=== PATIENT | female | born 2000 | race Caucasian/White ===

== ENCOUNTER 2022-12-15 07:51 | Inpatient (IN) ==
[2022-12-15] MEDS ORDERED: OXYTOCIN 30 UNITS/500 ML BAG IV PRN ×2 (09:03)
[2022-12-15] MEDS ORDERED: LIDOCAINE 1% LOCAL 20 ML VIAL INFIL PRN (09:03)
[2022-12-15] MEDS: LACTATED RINGER'S 1,000 ML IV PRN ×4 (09:45→22:16)
--- NOTE | 2022-12-15 10:04 | History & Physical Report ---
Date of Service December 15, 2022 Assessment & Plan (1) SROM (spontaneous rupture of membranes): Plan: Likely early labor given change from prior office exam and ctx on toco. Augmentation with pitocin discussed, accepted by patient. Epidural on request. Admission and Anticipated Discharge Date Admission Date: December 15, 2022 History of Present Illness Primary Care Provider: Jenn Castellanos, DO 22yo at 39w6d with ROM this morning f/b onset of mild ctx. Good FM, no VB, fluid clear. Allergies Allergy/AdvReac Type Severity Reaction Status Date / Time Penicillins Allergy Intermediate Rash Verified 12/15/22 08:13 latex Allergy Rash Verified 12/15/22 08:35 Home Medications Medication Instructions Recorded Confirmed Type prenat.vits,karla,[id number] 1 tab PO DAILY 05/04/22 12/15/22 History Patient History Medical History Anxiety and depression Palpitations holter monitored showed WNL Varicella vaccination Surgical History Hx of tonsillectomy Family History Mother Cervical cancer Other Dyslipidemia Hypertension Denies family history of Ovarian cancer Breast cancer Colorectal cancer Uterine cancer Social History Smoking Status: Never smoker Hx Alcohol Use: No Hx Substance Use: No Preferred Language: Irish Clinical Pharmacy Coordinator Required: No Beliefs That Will Affect Care: None marital status: Single marital status details: victoria Quintero III (20) [phone] Current Living Situation: Family Current Living Situation Comment: lives with mom, stepfather, grandmother and sibling, dogs current occupational status: student current occupation: [employer] student Other Information That Helps Us Care for You: No Feels Safe at Home: Yes Safety Concerns: Feels Safe At This Time Assistive Devices: None Physical Exam Constitutional: WD/WN, vitals as above Eyes: PERRL, conjunctivae normal, anicteric sclerae ENMT: external ear and nose normal, oropharynx normal Neck: supple Respiratory: normal respiratory effort and able to speak in complete sentences; no respiratory distress Cardiovascular: Rate/Rhythm: regular rate and regular rhythm Extremities: + pedal edema Gastrointestinal (Abdomen): Gravid / AGA, nontender Musculoskeletal: no cyanosis or clubbing, extremities motor strength 5/5 Skin: no rashes, warm and dry Psychiatric: A+Ox3, euthymic affect Genitourinary: Speculum/Bimanual Exam: no vaginal lesions, no vaginal bleeding and uterus nontender OB Exam Abdomen: + vertex, + estimated weight (7) and + regular contractions (Q3-5 mild) Manual OB Exam: + cervical dilation 2 cm, + cervical effacement 80%, + station -2 and + amniotic fluid clear OB Exam Monitor Tracing: + external FHT monitor used, + external uterine monitor used and + category I Lymphatic: no cervical or axillary lymphadenopathy Results & Data ([facility]) Vital Signs (Past 12 Hours) Vital Signs Temp Pulse Resp BP 12/15/22 09:00 98.4 F 18 12/15/22 08:10 98.4 F 18 12/15/22 09:44 57 L 122/84 12/15/22 08:04 71 115/78 Coding Level of Care Code None Diagnoses SROM (spontaneous rupture of membranes)
[2022-12-15] MEDS ORDERED: ePHEDrine sulfate 50 MG/ML AMP ONE (11:23)
[2022-12-15] MEDS ORDERED: BUPIVACAINE 0.25% 30 ML VIAL ONE (11:23)
[2022-12-15] MEDS ORDERED: fentaNYL citrate 100 MCG/2 ML VIAL ONE (11:23)
[2022-12-15] MEDS ORDERED: LIDOCAINE 2%/EPINEPHRINE 1:200,000 20 ML SDV ONE (11:23)
[2022-12-15] MEDS ORDERED: fentaNYL 2MCG/ML ROPIVACAINE 1.25MG/ML 100 ML BAG EPI ONE (11:23)
[2022-12-15] MEDS ORDERED: SODIUM CHLORIDE 0.9% INJ 10 ML VIAL ONE (11:23)
[2022-12-15 13:59] LABS: Hematocrit (blood only) 34.2 % (37.0-47.0); Mean Corpuscular Hemoglobin 26.1 pg (25.0-34.0); Mean Corpuscular Hgb Conc 32.2 g/dL (32.0-36.0); Mean Platelet Volume 11.4 fL (9.4-12.4); Platelet Count 287 K/uL (130-400); RDW Coefficient of Variation 13.9 % (11.5-14.5); RDW Standard Deviation 39.8 fL (36.4-46.3); Red Blood Count 4.22 M/uL (4.20-5.40); White Blood Count 10.28 K/ul (4.8-10.8)
[2022-12-15] MEDS ORDERED: ePHEDrine sulfate 50 MG/ML AMP IV PRN (15:22)
[2022-12-15] MEDS ORDERED: NALOXONE HCL 0.4 MG/1 ML VIAL/CARP IV PRN (15:22)
[2022-12-15] MEDS ORDERED: diphenhydrAMINE 50 MG/ML VIAL IV PRN (15:22)
[2022-12-15] MEDS ORDERED: ONDANSETRON INJ 2 MG/ML 2 ML VIAL IV PRN (15:22)
[2022-12-15] MEDS ORDERED: NALOXONE HCL 1 MG in SODIUM CHLORIDE 0.9% 1000ML 1,000 ML IV PRN (15:22)
[2022-12-15] MEDS ORDERED: NALBUPHINE HCL INJ 10 MG/ML AMP IV PRN (15:22)
--- NOTE | 2022-12-15 15:22 | Anesthesiology Consultation ---
Date of Service December 15, 2022 Assessment & Plan Chart Review Chart Review: Patient NOT seen in Pre Admission Testing and Acceptable Risk for Labor Epidural Consults Requested none ASA ASA2 Proposed Anesthesia Anesthesia Type: Labor Epidural Risk / Benefits Reviewed With: PT / POA / Parent / Guardian, Accepts Plan and Informed Consent Obtained History Height/Weight Height: 5 ft 4 in Weight: 73.028 kg Allergies Allergy/AdvReac Type Severity Reaction Status Date / Time Penicillins Allergy Intermediate Rash Verified 12/15/22 08:13 latex Allergy Rash Verified 12/15/22 08:35 Medications Home Medications Medication Instructions Recorded Confirmed Last Taken prenat.vits,karla,fjg-krud-inplo 1 tab PO DAILY 05/04/22 12/15/22 12/14/22 Active Medications Generic Name Dose Route Start Last Admin Trade Name Freq PRN Reason Stop Dose Admin Oxytocin 30 units in 500 mls @ 9 mls/hr 12/15/22 09:03 12/15/22 13:40 Pitocin IV 12/17/22 09:02 0.54 units/hr .Q24H PRN 9 mls/hr Labor Induction/Augmentation Titration Protocol 0.54 UNITS/HR Lactated Ringer's 1,000 mls @ 125 mls/hr 12/15/22 09:03 12/15/22 15:12 Lr IV 12/17/22 09:02 125 mls/hr .Q8H PRN Administration L&D Protocol Protocol Past Medical History Medical History Anxiety and depression Palpitations holter monitored showed WNL Varicella vaccination Exercise / Class Metabolic Activity II 4-5 Yardwork/Stairs/Walk up hill Past Family History Family History Mother Cervical cancer Other Dyslipidemia Hypertension Denies family history of Ovarian cancer Breast cancer Colorectal cancer Uterine cancer Past Surgical History Surgical History Hx of tonsillectomy Past Anesthesia History No Hx of Anesthesia Complications and No Family Hx of Anesthesia Complications History of PONV No Hx of PONV and No Hx of Motion Sickness Social History Smoking Status: Never smoker Hx Alcohol Use: No Hx Substance Use: No substance use type: does not use Physical Exam Vital Signs Last Vital Signs Temp 36.3 C L 12/15/22 15:00 Pulse 59 L 12/15/22 15:20 Resp 18 12/15/22 15:00 BP 120/68 12/15/22 15:07 Pulse Ox 100 12/15/22 15:20 ENMT Mouth: no dentition abnormality Thyromental Distance: > or= 3.5 Finger Breadths Mallampati Class: II Neck normal visual inspection Respiratory normal respiratory effort Auscultation: lungs clear to auscultation bilaterally Cardiovascular Rate/Rhythm: regular rate and regular rhythm Psychiatric Orientation: alert Testing Laboratory Results 12/15/22 09:15
--- NOTE | 2022-12-15 16:06 | Labor Progress Brief Note ---
Date of Service December 15, 2022 Subjective Comfortable with epidural. Has no concerns / complaints / questions at this time. Resting on her side facing the window, FOB in room supportive. Assessment & Plan Admission and Anticipated Discharge Date Admission Date: December 15, 2022 Physical Exam Genitourinary: Per RN recent exam, 4cm; not rechecked at this time Pitocin @ 11 FHT Cat 1 [place] Q2 Results & Data ([facility]) Vital Signs (Past 12 Hours) Vital Signs Temp Pulse Resp BP Pulse Ox 12/15/22 14:00 18 12/15/22 13:45 20 12/15/22 13:00 18 12/15/22 12:45 20 12/15/22 12:30 18 12/15/22 12:15 18 12/15/22 12:00 20 12/15/22 11:50 18 12/15/22 09:00 98.4 F 18 12/15/22 08:10 98.4 F 18 12/15/22 16:00 61 99 12/15/22 15:55 62 99 12/15/22 15:51 68 102/64 12/15/22 15:50 64 99 12/15/22 15:45 62 100 12/15/22 15:40 64 100 12/15/22 15:37 60 108/70 12/15/22 15:35 64 100 12/15/22 15:34 65 92 12/15/22 15:30 73 100 12/15/22 15:25 66 95 12/15/22 15:22 63 102/66 12/15/22 15:20 59 L 100 12/15/22 15:15 56 L 100 12/15/22 15:10 61 100 12/15/22 15:07 59 L 120/68 12/15/22 15:05 59 L 100 12/15/22 15:00 97.3 F L 63 18 100 12/15/22 14:55 61 100 12/15/22 14:51 63 106/64 12/15/22 14:50 67 100 12/15/22 14:45 60 100 12/15/22 14:40 63 100 12/15/22 14:37 66 130/83 12/15/22 14:35 57 L 100 12/15/22 14:30 57 L 18 100 12/15/22 13:30 18 12/15/22 13:30 18 12/15/22 14:25 58 L 100 12/15/22 14:22 56 L 114/68 12/15/22 14:20 58 L 100 12/15/22 14:15 63 100 12/15/22 14:10 62 100 12/15/22 14:07 57 L 118/80 12/15/22 14:05 60 100 12/15/22 14:00 61 100 12/15/22 13:55 59 L 100 12/15/22 13:52 57 L 123/75 12/15/22 13:50 57 L 100 12/15/22 13:45 58 L 100 12/15/22 13:40 65 100 12/15/22 13:37 60 124/84 12/15/22 13:35 61 100 12/15/22 13:30 63 20 100 12/15/22 13:25 61 100 12/15/22 13:22 68 112/83 12/15/22 13:20 63 100 12/15/22 13:15 58 L 18 100 12/15/22 13:10 56 L 100 12/15/22 13:05 54 L 98 12/15/22 13:02 53 L 119/75 12/15/22 13:00 56 L 99 12/15/22 12:58 54 L 117/70 12/15/22 12:55 57 L 99 12/15/22 12:53 56 L 121/75 12/15/22 12:50 59 L 99 12/15/22 12:48 60 120/79 12/15/22 12:45 59 L 100 12/15/22 12:42 61 123/81 12/15/22 12:40 56 L 100 12/15/22 12:38 57 L 124/82 12/15/22 12:35 60 100 12/15/22 12:33 60 124/85 12/15/22 12:30 60 100 12/15/22 12:28 62 121/81 12/15/22 12:25 64 100 12/15/22 12:23 62 121/84 12/15/22 12:20 59 L 100 12/15/22 12:18 74 138/92 12/15/22 12:15 65 100 12/15/22 12:13 58 L 121/78 12/15/22 12:10 62 100 12/15/22 12:08 67 129/93 12/15/22 12:05 71 100 12/15/22 12:02 65 111/72 12/15/22 12:00 66 120/81 100 12/15/22 11:58 70 119/80 12/15/22 11:55 64 100 12/15/22 11:56 67 117/78 12/15/22 11:54 66 119/79 12/15/22 11:52 64 118/74 12/15/22 11:50 100 12/15/22 11:50 74 12/15/22 11:50 64 118/76 12/15/22 11:48 60 116/72 12/15/22 11:45 68 100 12/15/22 11:46 64 127/76 12/15/22 11:40 70 100 12/15/22 11:35 71 100 12/15/22 11:30 56 L 100 12/15/22 11:25 59 L 100 12/15/22 11:00 18 12/15/22 11:00 98.4 F 18 12/15/22 10:45 75 100/67 12/15/22 09:44 57 L 122/84 12/15/22 08:04 71 115/78 Coding Level of Care Code None
[2022-12-15] MEDS: fentaNYL 2MCG/ML ROPIVACAINE 1.25MG/ML 100 ML BAG EPI PRN ×2 (17:21→21:43)
[2022-12-15] MEDS ORDERED: Nursing to Pharmacy Communication SCH (18:00)
--- NOTE | 2022-12-15 19:52 | Labor Progress Brief Note ---
Date of Service December 15, 2022 Subjective Comfortable with epidural though aware of ctx as pressure Assessment & Plan Admission and Anticipated Discharge Date Admission Date: December 15, 2022 Physical Exam Genitourinary: MVU 175 most recently per Barbara HORTA Pit has been increased since shift change twice, now at 17u. LOF clear continues FHT Cat 1 [place] Q2m Plan: continue titrating to goal of adequate MVU (200-250) Results & Data ([facility]) Vital Signs (Past 12 Hours) Vital Signs Temp Pulse Resp BP Pulse Ox 12/15/22 19:01 98.2 F 18 12/15/22 18:30 20 12/15/22 17:30 18 12/15/22 18:30 97.3 F L 12/15/22 16:30 20 12/15/22 14:00 18 12/15/22 13:45 20 12/15/22 13:00 18 12/15/22 12:45 20 12/15/22 12:30 18 12/15/22 12:15 18 12/15/22 12:00 20 12/15/22 11:50 18 12/15/22 09:00 98.4 F 18 12/15/22 08:10 98.4 F 18 12/15/22 19:45 60 98 12/15/22 19:40 63 99 12/15/22 19:37 75 102/59 L 12/15/22 19:35 65 99 12/15/22 19:30 69 98 12/15/22 19:25 63 98 12/15/22 19:22 59 L 121/71 12/15/22 19:20 66 100 12/15/22 19:15 65 100 12/15/22 19:10 64 99 12/15/22 19:06 66 109/66 12/15/22 19:05 66 100 12/15/22 19:00 69 99 12/15/22 18:55 65 99 12/15/22 18:52 65 129/79 12/15/22 18:50 63 100 12/15/22 18:45 61 99 12/15/22 18:40 60 100 12/15/22 18:37 61 118/58 L 12/15/22 18:35 64 100 12/15/22 18:30 65 100 12/15/22 18:25 65 100 12/15/22 18:22 65 129/85 12/15/22 18:20 65 100 12/15/22 18:15 58 L 100 12/15/22 18:10 63 100 12/15/22 18:07 56 L 131/85 12/15/22 18:05 66 99 12/15/22 18:00 57 L 20 99 12/15/22 17:55 69 100 12/15/22 17:53 60 129/91 12/15/22 17:50 64 100 12/15/22 17:45 66 98 12/15/22 17:40 63 100 12/15/22 17:36 68 123/76 12/15/22 17:35 64 100 12/15/22 17:30 66 98 12/15/22 17:25 62 99 12/15/22 17:23 65 120/74 12/15/22 17:20 67 99 12/15/22 17:15 65 98 12/15/22 17:10 68 99 12/15/22 17:07 72 95/55 L 12/15/22 17:05 99.0 F 61 18 98 12/15/22 17:00 68 98 12/15/22 16:55 64 98 12/15/22 16:51 68 92/56 L 12/15/22 16:50 67 98 12/15/22 16:45 65 98 12/15/22 16:40 68 98 12/15/22 16:36 70 93/55 L 12/15/22 16:35 71 97 12/15/22 16:30 61 98 12/15/22 16:25 69 98 12/15/22 16:22 74 94/51 L 12/15/22 16:20 72 99 12/15/22 16:15 60 99 12/15/22 16:10 63 99 12/15/22 16:07 65 100/65 12/15/22 16:05 58 L 100 12/15/22 16:00 61 20 99 12/15/22 15:55 62 99 12/15/22 15:51 68 102/64 12/15/22 15:50 64 99 12/15/22 15:45 62 100 12/15/22 15:40 64 100 12/15/22 15:37 60 108/70 12/15/22 15:35 64 100 12/15/22 15:34 65 92 01/26/23 15:30 73 16 100 12/15/22 15:25 66 95 12/15/22 15:22 63 102/66 12/15/22 15:20 59 L 100 12/15/22 15:15 56 L 100 12/15/22 15:10 61 100 12/15/22 15:07 59 L 120/68 12/15/22 15:05 59 L 100 12/15/22 15:00 97.3 F L 63 18 100 12/15/22 14:55 61 100 12/15/22 14:51 63 106/64 12/15/22 14:50 67 100 12/15/22 14:45 60 100 12/15/22 14:40 63 100 12/15/22 14:37 66 130/83 12/15/22 14:35 57 L 100 12/15/22 14:30 57 L 18 100 12/15/22 13:30 18 12/15/22 13:30 18 12/15/22 14:25 58 L 100 12/15/22 14:22 56 L 114/68 12/15/22 14:20 58 L 100 12/15/22 14:15 63 100 12/15/22 14:10 62 100 12/15/22 14:07 57 L 118/80 12/15/22 14:05 60 100 12/15/22 14:00 61 100 12/15/22 13:55 59 L 100 12/15/22 13:52 57 L 123/75 12/15/22 13:50 57 L 100 12/15/22 13:45 58 L 100 12/15/22 13:40 65 100 12/15/22 13:37 60 124/84 12/15/22 13:35 61 100 12/15/22 13:30 63 20 100 12/15/22 13:25 61 100 12/15/22 13:22 68 112/83 12/15/22 13:20 63 100 12/15/22 13:15 58 L 18 100 12/15/22 13:10 56 L 100 12/15/22 13:05 54 L 98 12/15/22 13:02 53 L 119/75 12/15/22 13:00 56 L 99 12/15/22 12:58 54 L 117/70 12/15/22 12:55 57 L 99 01/26/23 12:53 56 L 121/75 12/15/22 12:50 59 L 99 12/15/22 12:48 60 120/79 12/15/22 12:45 59 L 100 12/15/22 12:42 61 123/81 12/15/22 12:40 56 L 100 12/15/22 12:38 57 L 124/82 12/15/22 12:35 60 100 12/15/22 12:33 60 124/85 12/15/22 12:30 60 100 12/15/22 12:28 62 121/81 12/15/22 12:25 64 100 12/15/22 12:23 62 121/84 12/15/22 12:20 59 L 100 12/15/22 12:18 74 138/92 12/15/22 12:15 65 100 12/15/22 12:13 58 L 121/78 12/15/22 12:10 62 100 12/15/22 12:08 67 129/93 12/15/22 12:05 71 100 12/15/22 12:02 65 111/72 12/15/22 12:00 66 120/81 100 12/15/22 11:58 70 119/80 12/15/22 11:55 64 100 12/15/22 11:56 67 117/78 12/15/22 11:54 66 119/79 12/15/22 11:52 64 118/74 12/15/22 11:50 100 12/15/22 11:50 74 12/15/22 11:50 64 118/76 12/15/22 11:48 60 116/72 12/15/22 11:45 68 100 12/15/22 11:46 64 127/76 12/15/22 11:40 70 100 12/15/22 11:35 71 100 12/15/22 11:30 56 L 100 12/15/22 11:25 59 L 100 12/15/22 11:00 18 12/15/22 11:00 98.4 F 18 12/15/22 10:45 75 100/67 12/15/22 09:44 57 L 122/84 12/15/22 08:04 71 115/78 Coding Level of Care Code None
[2022-12-15] MEDS ORDERED: ACETAMINOPHEN 325 MG TAB PO PRN (21:04)
[2022-12-16] MEDS ORDERED: miSOPROStoL 200 MCG TAB ONE (02:02)
[2022-12-16] MEDS ORDERED: BENZOCAINE 20% AER SPR 82.5 GM CAN EXT PRN (02:10)
[2022-12-16] MEDS ORDERED: oxyCODONE/ACETAMINOPHEN 5mg/325mg TAB PO PRN (02:10)
[2022-12-16] MEDS ORDERED: DIPHTHERIA/TETANUS/PERTUSSIS 0.5mL SYR/VIAL (Age 7+yrs) IM ONE (02:10)
[2022-12-16] MEDS ORDERED: ACETAMINOPHEN 325 MG TAB PO PRN (02:10)
[2022-12-16] MEDS ORDERED: HYDROCORTISONE ACETATE 25 MG SUPP PR PRN (02:10)
--- NOTE | 2022-12-16 02:14 | Delivery Summary ---
Vaginal Delivery Summary Date of Service December 16, 2022 Vaginal Delivery Summary DIAGNOSES: 1. Vasquez intrauterine at 40w gestation. 2. SROM and augmentation of early labor. 3. Group B Streptococcus Neg. PROCEDURE: Spontaneous vaginal delivery without laceration. SURGEON: Belén Montano MD. COLD STRIP FEEDER: None. ESTIMATED BLOOD LOSS: 500 mL. COMPLICATIONS: None. PLACENTA: Spontaneous and intact with a 3-vessel cord. DISPOSITION: Stable to labor and delivery. DESCRIPTION: Adeola presented to L&D after having SROM in the italian teacher hours and was admitted right around 0830am with gross rupture, and nonpainful / irregular contractions. She was augmented with pitocin throughout the day, and an IUPC was used to reach adequate MVU, which resulted in dilation to complete. It was noted that her contraction pattern included grouped or clustered contractions many times throughout the day, and FHT were Cat 2 and times as well. She reached complete dilation as assessed by nursing staff, and was started on the second stage of labor, which I was able to see on the QS monitor system. She pushed very well; I was called to the room for delivery not long after she began pushing. Approximately a silver-dollar sized amount of scalp was visible between the labia when I prepped the patient for delivery. Over the next push she brought the head to , then the next two pushes resulted in minimal additional movement. I requested that a stool be positioned at the bedside and had the patient's mom step aside so that a staff member could provide Bryan' positioning and be ready to perform suprapubic pressure with the next push. Through the next push, with Bryan' positioning, the head delivered to the chin, but pulled back against the perineum in a "turtle sign." With the next effort, suprapubic pressure was applied by Barbara Sr RN from the posterior aspect of the 's left / anterior-most shoulder, which successfully reduced the shoulder such that it was able to be delivered beneath the pubic symphysis. The posterior shoulder then rapidly delivered, and the remainder of the followed. Terminal meconium was noted. There was no nuchal cord. The was briefly placed on the maternal abdomen while the cord was doubly clamped and cut, and the was then immediately taken to the warmer for examination. The placenta delivered spontaneously and was noted to be intact and with a 3VC, with a [place]/marginal insertion. The cervix, vagina and perineum were examined and were found to be without defect requiring repair. The fundus was initially boggy and brisk lochia was noted; uterine massage did help to resolve this, but it resumed when massage was stopped, and 1000mcg of rectal cytotec was administered while massage was then continued. The uterus did firm up significantly after that, and bleeding slowed significantly. The infant was noted to have a bruised appearance to the face / forehead area, and is noted to have limited movements of the left upper limb seen immediately after . The events of delivery, including a significant shoulder dystocia and suspicion for possible brachial plexus injury, plus the risk of fracture of the clavicle or other bones which are not immediately obvious but may yet be identified through x-ray, were explained to each of the patient, the FOB and that patient's mother while we were in the delivery room. All questions were answered to their stated satisfaction at this time. [facility] Vaginal Delivery Charge Vaginal Delivery Codes: 98912 global code for the antepartum, delivery, and post-
[2022-12-16] MEDS ORDERED: MEPERIDINE HCL 25 MG/ML CARP/VIAL IV ONE (02:28)
--- NOTE | 2022-12-16 02:32 | Communication Note ---
Date of Service: December 16, 2022 patient delivered. dural puncture noted during epidural placement. epidural catheter remains in place at least until morning. plan is to pull and dose epidural morphine and iv cosyntropin with catheter removal as pdph prophylaxis. patient counselled on spinal headache. if prophylaxis fails, she can be offered an epidural blood patch.
[2022-12-16] MEDS ORDERED: MEPERIDINE HCL 25 MG/ML CARP/VIAL ONE (02:33)
--- NOTE | 2022-12-16 02:33 | Communication Note ---
Date of Service: December 16, 2022 Patient with significant shaking post-delivery, consistent with adrenaline- related symptoms seen at the time of delivery (and especially understandable g iven the extra stresses and anxiety of experiencing a shoulder dystocia in this patient's case). The shakes are causing some concern for patient and support persons. Of note, these do stop when the patient is asked to hold still for uterine exam per field staff manager. There has been no alteration in patient consciousness to suggest seizure or convulsive syncope. Discussed with Dr. Davis who is also on the floor at present, discussing plans for prevention of spinal headache in light of her earlier "wet tap" during epidural placement. At his suggestion, which I agree with, offered 12.5mg IV demerol to assist in relaxation of the shaking for maternal comfort. Order placed and Barbara Sr aware.
[2022-12-16] MEDS ORDERED: miSOPROStoL 200 MCG TAB PR ONE (02:34)
[2022-12-16] MEDS ORDERED: COSYNTROPIN 1,000 MCG in SODIUM CHLORIDE 0.9% 50 ML IV ONE (07:30)
[2022-12-16] MEDS ORDERED: MoRPHine SULFATE PF 1 MG/ML 10 ML AMP/VIAL ONE (08:09)
[2022-12-16] MEDS: IBUPROFEN 600 MG TAB PO PRN ×3 (08:20→20:51)
--- NOTE | 2022-12-16 08:23 | Communication Note ---
Date of Service: December 16, 2022 Spoke with previous debone supervisor anesthesiologist regarding plan to try and prevent PDPH. This morning patient sitting upright in bed and denied JURADO, vision changes, neck pain, photophobia. Has not been OOB and ambulating as of yet. Patient was prescribed 1mg cosyntropin IV and this was started at 0815. I also administered 3mg epidural morphine and corresponding morphine orders will be entered. OB service aware pt should not be discharged for another 24 hours in order to monitor her 2/2 neuraxial opioid given. I also ensured pt placed on pulse oximetry that can be monitored at nursing station. She is to receive 1liter NS bolus over two hours and she was encouraged to increase intake of PO caffeinated beverages. Will closely monitor over next 24 hours and will consider epidural blood patch if deemed necessary. All questions answered and pt agreeable to plan.
--- NOTE | 2022-12-16 08:27 | Anesthesia Procedure Note ---
Date of Service December 16, 2022 Anesthesia Post Epidural Note Vital Signs Vital Signs: Temp Pulse Resp BP Pulse Ox 36.5 C 85 18 119/72 98 12/16/22 03:50 12/16/22 03:50 12/16/22 03:50 12/16/22 03:50 12/16/22 02:57 Pain Intensity Vaginal: Pain Intensity: 0 Notes Mental Status: alert / awake / arousable and participated in evaluation Patient Amnestic to Procedure: No Nausea / Vomiting: adequately controlled Pain: adequately controlled Airway Patency, RR, SpO2: stable & adequate BP & HR: stable & adequate Hydration State: stable & adequate Neuraxial Anesthesia: was administered and sensory block resolved Anesthetic Complications: no major complications apparent (Patient known unintential dural puncture. ) and Pt Satisfied with anesthetic care Epidural: Removed without complications and With tip intact
[2022-12-16] MEDS ORDERED: NALOXONE HCL 0.4 MG/1 ML VIAL/CARP IV PRN (08:30)
[2022-12-16] MEDS ORDERED: NALOXONE HCL 1 MG in SODIUM CHLORIDE 0.9% 1000ML 1,000 ML IV PRN (08:30)
[2022-12-16] MEDS ORDERED: SODIUM CHLORIDE 0.9% 1000ML 1,000 ML IV SCH (08:30)
[2022-12-16] MEDS ORDERED: DC INTRASPINAL MORPHINE SCH (08:30)
[2022-12-16] MEDS ORDERED: NALOXONE HCL 0.08 MG in SYRINGE 1.8 ML IV PRN (08:30)
[2022-12-16] MEDS ORDERED: NO NARCOTICS OR SEDATIVES SCH (08:30)
[2022-12-16] MEDS ORDERED: LACTATED RINGER'S 500 ML IV PRN (08:30)
[2022-12-16] MEDS ORDERED: ONDANSETRON INJ 2 MG/ML 2 ML VIAL IV PRN (08:30)
[2022-12-16] MEDS ORDERED: NALBUPHINE HCL INJ 10 MG/ML AMP IV PRN (08:30)
[2022-12-16] MEDS ORDERED: MoRPHine SULFATE PF 1 MG/ML 10 ML AMP/VIAL EPI ONE (08:30)
[2022-12-16] MEDS ORDERED: diphenhydrAMINE 50 MG/ML VIAL IV PRN (08:30)
[2022-12-16] MEDS: PRENATAL VITAMIN 1 TAB PO SCH (11:02)
[2022-12-16] MEDS: DOCUSATE SODIUM 100 MG CAP PO SCH ×2 (11:03→20:51)
[2022-12-16 14:59] LABS: Albumin Level 2.7 gm/dl (3.4-5.0); Bilirubin,Total 0.3 mg/dl (0.2-1.0); Calcium 7.9 mg/dl (8.5-10.1); Potassium 4.3 mmol/L (3.5-5.1)
[2022-12-16 15:00] LABS: Hematocrit (blood only) 22.2 % (37.0-47.0); Hemoglobin 7.2 g/dl (12.0-16.0); Mean Corpuscular Hemoglobin 26.5 pg (25.0-34.0); Mean Corpuscular Hgb Conc 32.4 g/dL (32.0-36.0); Mean Corpuscular Volume 81.6 fL (80.0-100.0); Mean Platelet Volume 10.6 fL (9.4-12.4); Platelet Count 200 K/uL (130-400); RDW Coefficient of Variation 14.2 % (11.5-14.5); RDW Standard Deviation 41.1 fL (36.4-46.3); Red Blood Count 2.72 M/uL (4.20-5.40); White Blood Count 16.85 K/ul (4.8-10.8)
[2022-12-16 15:05] LABS: Albumin Globulin Ratio 1.2 (0.9-2); BUN Creatinine Ratio 7.8 (10-20); Creatinine Clr Calc Pharmacy 97.6 ml/min; Est GFR (African American) 106.7 ml/min; Globulin 2.2 gm/dl (2.5-4.0); Total Protein 4.9 gm/dl (6.0-8.3)
--- NOTE | 2022-12-16 15:26 | Obstetrical Progress Note ---
Date of Service December 16, 2022 Assessment & Plan Admission and Anticipated Discharge Date Admission Date: December 15, 2022 Subjective Called to room by RN for patient complaint of shaking. I came to room, she is in bed, holding hands with , 2 visitors. Right hand is shaking intermittently, occasionally left hand shaking. Awake, alert, oriented. Able to talk and have a conversation. Pale. Abdomen soft, nondistended. Uterus firm and at umbilicus. No LE edema, 2+ bilateral DTR. I told patient that I would order preeclampsia labs to r/o this as a potential cause. However, patient stopped shaking with movements and during conversation. She stopped shaking while answering my questions, then began shaking again after our conversation, then stopped shaking again to remove her bedsheets for me to perform physical exam. Results & Data ([facility]) Vital Signs (Past 12 Hours) Vital Signs Temp Pulse Pulse Resp BP BP 12/16/22 03:50 36.5 C 85 18 119/72 12/16/22 03:38 18 12/16/22 03:38 85 119/72 12/16/22 03:29 88 112/67 PG Care Time/CCT Total # of Minutes Spent Total Time Spent with Patient: Total time spent is greater than 50% in coordination of care (as documented) at patient's floor/unit and/or counseling patient: Coding Level of Care Code None
[2022-12-16] MEDS ORDERED: MAG SULFATE 4GM BOLUS FROM BAG IV ONE (15:54)
--- NOTE | 2022-12-16 16:10 | Obstetrical Progress Note ---
Date of Service December 16, 2022 Assessment & Plan Admission and Anticipated Discharge Date Admission Date: December 15, 2022 Subjective Called back to patient room, as she is having more shaking activity. I walked into room, she has 3 visitors + her mother. Both hands are shaking, she is lying in bed. Awake, talking. Feeling well except for the shaking. Reviewed labs with patient - hgb is low, likely related to delivery as she is not bleeding now. Remaining preeclampsia labs normal. However, given that she is within 24h of delivery, and her recent BPs have been elevated, I recommended to her that we treat for eclampsia, and start magnesium. She will be moved back to L&D, will perform labs Q6h including Mag levels. Will also consider neuro consult - I am not sure if these are pseudoseizures, vs seizures. Given the minimal risk of magnesium treatment and the potential for large benefit if this is preeclampsia, she is agreeable to treat this as eclampsia for now but will consider other diagnoses also. PG Care Time/CCT Total # of Minutes Spent Total Time Spent with Patient: Total time spent is greater than 50% in coordination of care (as documented) at patient's floor/unit and/or counseling patient: Coding Level of Care Code None
[2022-12-16] MEDS: LACTATED RINGER'S 1,000 ML IV PRN (16:32)
[2022-12-16] MEDS: MAGNESIUM SULFATE / WTR 40 GM/1,000 ML BAG IV SCH (16:39)
[2022-12-16 21:37] LABS: Albumin Level 2.8 gm/dl (3.4-5.0); Bilirubin,Total 0.3 mg/dl (0.2-1.0); Calcium 7.8 mg/dl (8.5-10.1); Magnesium Therapeutic L&D Only 4.9 mg/dL (4.0-8.0)
[2022-12-16 21:43] LABS: Albumin Globulin Ratio 1.2 (0.9-2); BUN Creatinine Ratio 7.1 (10-20); Creatinine Clr Calc Pharmacy 104.6 ml/min; Est GFR (Non-African American) 100.1 ml/min; Globulin 2.3 gm/dl (2.5-4.0); Total Protein 5.1 gm/dl (6.0-8.3)
[2022-12-16 21:48] LABS: Hematocrit (blood only) 22.4 % (37.0-47.0); Hemoglobin 7.3 g/dl (12.0-16.0); Mean Corpuscular Hemoglobin 25.9 pg (25.0-34.0); Mean Corpuscular Hgb Conc 32.6 g/dL (32.0-36.0); Mean Corpuscular Volume 79.4 fL (80.0-100.0); Mean Platelet Volume 10.9 fL (9.4-12.4); Platelet Count 203 K/uL (130-400); RDW Coefficient of Variation 14.1 % (11.5-14.5); RDW Standard Deviation 40.3 fL (36.4-46.3); Red Blood Count 2.82 M/uL (4.20-5.40); White Blood Count 16.17 K/ul (4.8-10.8)
[2022-12-17 03:41] LABS: Hematocrit (blood only) 21.3 % (37.0-47.0); Mean Corpuscular Hemoglobin 26.5 pg (25.0-34.0); Mean Corpuscular Hgb Conc 32.9 g/dL (32.0-36.0); Mean Corpuscular Volume 80.7 fL (80.0-100.0); Mean Platelet Volume 10.6 fL (9.4-12.4); Platelet Count 174 K/uL (130-400); RDW Coefficient of Variation 14.1 % (11.5-14.5); RDW Standard Deviation 40.4 fL (36.4-46.3); Red Blood Count 2.64 M/uL (4.20-5.40); White Blood Count 12.85 K/ul (4.8-10.8)
[2022-12-17 03:58] LABS: Albumin Level 2.6 gm/dl (3.4-5.0); Bilirubin,Total 0.3 mg/dl (0.2-1.0); Calcium 7.1 mg/dl (8.5-10.1); Magnesium Therapeutic L&D Only 6.1 mg/dL (4.0-8.0); Potassium 3.8 mmol/L (3.5-5.1)
[2022-12-17 04:04] LABS: Albumin Globulin Ratio 1.2 (0.9-2); BUN Creatinine Ratio 6.4 (10-20); Creatinine Clr Calc Pharmacy 112.7 ml/min; Est GFR (African American) 126.8 ml/min; Est GFR (Non-African American) 109.4 ml/min; Globulin 2.2 gm/dl (2.5-4.0); Total Protein 4.8 gm/dl (6.0-8.3)
[2022-12-17] MEDS: MAGNESIUM SULFATE / WTR 40 GM/1,000 ML BAG IV SCH (06:02)
[2022-12-17] MEDS: LACTATED RINGER'S 1,000 ML IV PRN (06:02)
[2022-12-17] MEDS: IBUPROFEN 600 MG TAB PO PRN ×2 (06:34→19:17)
[2022-12-17 07:09] LABS: Hemoglobin 7.3 g/dl (12.0-16.0); Mean Corpuscular Hemoglobin 26.4 pg (25.0-34.0); Mean Corpuscular Hgb Conc 33.2 g/dL (32.0-36.0); Mean Corpuscular Volume 79.4 fL (80.0-100.0); Mean Platelet Volume 10.9 fL (9.4-12.4); Platelet Count 200 K/uL (130-400); RDW Coefficient of Variation 14.2 % (11.5-14.5); RDW Standard Deviation 40.5 fL (36.4-46.3); Red Blood Count 2.77 M/uL (4.20-5.40); White Blood Count 11.86 K/ul (4.8-10.8)
[2022-12-17] MEDS ORDERED: SODIUM CHLORIDE 0.9% 250 ML IV PRN ×2 (07:58→19:41)
--- NOTE | 2022-12-17 09:12 | Obstetrical Progress Note ---
Date of Service December 17, 2022 Assessment & Plan (1) Supervision of normal first : PPD#1. Stable labs, no further shaking activity. Will plan to continue magnesium for the 24h to reduce risk of eclamptic seizures, although at this point I think eclampsia is less likely a cause of her shaking activity. If no further shaking, then would recommend possible follow up outpatient with either PCP or neurology. Subjective No further shaking activity overnight. Preeclampsia labs are negative. Hgb stable. Review of Systems All systems reviewed & are unremarkable except as noted in HPI & below Physical Exam Constitutional WD/WN, vitals as above Respiratory normal respiratory effort, lungs clear to auscultation no respiratory distress Cardiovascular Rate/Rhythm: regular rate and regular rhythm Gastrointestinal (Abdomen) Inspection/Auscultation: abdomen normal to inspection Percussion/Palpation: abdomen soft; abdomen nontender Gravid. No s/s chorio or abruption. Skin no rashes, warm and dry Psychiatric A+Ox3, euthymic affect Results & Data ([facility]) Vital Signs (Past 12 Hours) Vital Signs Temp Pulse Pulse Resp BP BP Pulse Ox 12/17/22 08:55 16 12/17/22 08:00 16 12/17/22 07:15 20 12/17/22 07:15 36.5 C 20 12/17/22 06:00 18 12/17/22 05:00 18 12/17/22 04:00 18 12/17/22 04:00 36.9 C 65 18 108/69 96 12/17/22 03:00 18 12/17/22 02:00 18 12/17/22 01:00 18 12/17/22 00:00 16 12/16/22 23:00 20 12/16/22 22:00 18 12/17/22 09:03 75 96 12/17/22 08:58 80 96 12/17/22 08:53 78 96 12/17/22 08:48 80 96 12/17/22 08:43 75 95 12/17/22 08:38 80 96 12/17/22 08:33 73 96 12/17/22 08:28 75 96 12/17/22 08:23 74 97 12/17/22 08:18 76 96 12/17/22 08:13 72 97 12/17/22 08:08 73 96 12/17/22 08:03 71 96 12/17/22 07:58 75 97 12/17/22 07:53 71 96 12/17/22 07:48 76 96 12/17/22 07:43 72 96 12/17/22 07:38 89 100 12/17/22 07:33 77 99 12/17/22 07:28 70 98 12/17/22 07:23 70 99 12/17/22 07:18 83 100 12/17/22 07:13 74 115/76 98 12/17/22 07:08 72 97 12/17/22 07:03 69 98 12/17/22 06:58 72 99 12/17/22 06:53 73 98 12/17/22 06:48 76 98 12/17/22 06:43 75 98 12/17/22 06:38 74 100 12/17/22 06:33 70 99 12/17/22 06:28 70 97 12/17/22 06:24 70 110/76 12/17/22 06:23 69 98 12/17/22 06:18 78 100 12/17/22 06:13 72 98 12/17/22 06:08 72 100 12/17/22 06:03 78 99 12/17/22 05:58 74 99 12/17/22 05:53 67 96 12/17/22 05:48 69 96 12/17/22 05:43 68 96 12/17/22 05:38 68 95 12/17/22 05:33 83 95 12/17/22 05:28 77 95 12/17/22 05:24 75 115/77 12/17/22 05:23 77 95 12/17/22 05:18 74 94 12/17/22 05:13 73 95 12/17/22 05:08 71 95 12/17/22 05:03 69 95 12/17/22 04:58 69 96 12/17/22 04:53 70 95 12/17/22 04:48 69 96 12/17/22 04:43 68 96 12/17/22 04:38 72 95 12/17/22 04:33 70 95 12/17/22 04:28 69 95 12/17/22 04:24 65 108/69 12/17/22 04:23 69 95 12/17/22 04:18 73 94 12/17/22 04:13 76 95 12/17/22 04:08 76 94 12/17/22 04:03 77 95 12/17/22 03:58 73 94 12/17/22 03:53 77 95 12/17/22 03:48 73 96 12/17/22 03:43 77 96 12/17/22 03:38 76 95 12/17/22 03:33 73 95 12/17/22 03:28 70 95 12/17/22 03:24 69 105/67 12/17/22 03:23 71 96 12/17/22 03:18 70 97 12/17/22 03:13 73 96 12/17/22 03:08 72 96 12/17/22 03:03 70 96 12/17/22 02:58 69 96 12/17/22 02:53 65 96 12/17/22 02:48 69 96 12/17/22 02:43 68 96 12/17/22 02:38 68 96 12/17/22 02:33 69 96 12/17/22 02:28 67 96 12/17/22 02:23 67 95 12/17/22 02:18 68 95 12/17/22 02:13 67 95 12/17/22 02:08 70 94 12/17/22 02:03 76 95 12/17/22 01:58 73 95 12/17/22 01:53 75 95 12/17/22 01:48 74 96 12/17/22 01:43 71 94 12/17/22 01:38 67 96 12/17/22 01:33 66 96 12/17/22 01:28 65 95 12/17/22 01:23 66 95 12/17/22 01:24 77 109/68 12/17/22 01:18 67 96 12/17/22 01:13 66 96 12/17/22 01:08 67 96 12/17/22 01:03 66 95 12/17/22 00:58 76 96 12/17/22 00:53 67 95 12/17/22 00:48 67 95 12/17/22 00:43 64 95 12/17/22 00:38 68 95 12/17/22 00:33 68 94 12/17/22 00:28 70 94 12/17/22 00:24 66 102/59 L 12/17/22 00:23 72 95 12/17/22 00:18 71 94 01/28/23 00:13 75 96 12/17/22 00:08 80 97 12/17/22 00:03 70 95 12/16/22 23:58 70 94 12/16/22 23:53 70 95 12/16/22 23:48 70 95 12/16/22 23:43 70 94 12/16/22 23:38 69 94 12/16/22 23:33 68 94 12/16/22 23:28 69 94 12/16/22 23:24 78 103/72 12/16/22 23:23 69 94 12/16/22 23:18 70 95 12/16/22 23:13 72 94 12/16/22 23:08 72 94 12/16/22 23:03 71 94 12/16/22 22:58 71 94 12/16/22 22:53 75 95 12/16/22 22:48 77 95 12/16/22 22:43 75 95 12/16/22 22:38 72 95 12/16/22 22:33 70 97 12/16/22 22:28 69 96 12/16/22 22:24 69 105/57 L 12/16/22 22:23 72 97 12/16/22 22:18 89 97 12/16/22 22:13 75 96 12/16/22 22:08 83 96 12/16/22 22:03 74 95 12/16/22 21:58 73 95 12/16/22 21:53 75 95 12/16/22 21:48 74 95 12/16/22 21:43 74 95 12/16/22 21:38 76 95 12/16/22 21:33 79 96 12/16/22 21:28 74 96 12/16/22 21:24 79 111/74 12/16/22 21:23 82 96 12/16/22 21:18 91 H 98 12/16/22 21:13 82 97 12/16/22 21:08 72 99 O2 Del Method 12/17/22 08:55 12/17/22 08:00 12/17/22 07:15 12/17/22 07:15 12/17/22 06:00 12/17/22 05:00 12/17/22 04:00 12/17/22 04:00 Room Air 12/17/22 03:00 12/17/22 02:00 12/17/22 01:00 12/17/22 00:00 12/16/22 23:00 12/16/22 22:00 12/17/22 09:03 12/17/22 08:58 12/17/22 08:53 12/17/22 08:48 12/17/22 08:43 12/17/22 08:38 12/17/22 08:33 12/17/22 08:28 12/17/22 08:23 12/17/22 08:18 12/17/22 08:13 12/17/22 08:08 12/17/22 08:03 12/17/22 07:58 12/17/22 07:53 12/17/22 07:48 12/17/22 07:43 12/17/22 07:38 12/17/22 07:33 12/17/22 07:28 12/17/22 07:23 12/17/22 07:18 12/17/22 07:13 12/17/22 07:08 12/17/22 07:03 12/17/22 06:58 12/17/22 06:53 12/17/22 06:48 12/17/22 06:43 12/17/22 06:38 12/17/22 06:33 12/17/22 06:28 12/17/22 06:24 12/17/22 06:23 12/17/22 06:18 12/17/22 06:13 12/17/22 06:08 12/17/22 06:03 12/17/22 05:58 12/17/22 05:53 12/17/22 05:48 12/17/22 05:43 12/17/22 05:38 12/17/22 05:33 12/17/22 05:28 12/17/22 05:24 12/17/22 05:23 12/17/22 05:18 12/17/22 05:13 12/17/22 05:08 12/17/22 05:03 12/17/22 04:58 12/17/22 04:53 12/17/22 04:48 12/17/22 04:43 12/17/22 04:38 12/17/22 04:33 12/17/22 04:28 12/17/22 04:24 12/17/22 04:23 12/17/22 04:18 12/17/22 04:13 12/17/22 04:08 12/17/22 04:03 12/17/22 03:58 12/17/22 03:53 12/17/22 03:48 12/17/22 03:43 12/17/22 03:38 12/17/22 03:33 12/17/22 03:28 12/17/22 03:24 12/17/22 03:23 12/17/22 03:18 12/17/22 03:13 12/17/22 03:08 12/17/22 03:03 12/17/22 02:58 12/17/22 02:53 12/17/22 02:48 12/17/22 02:43 12/17/22 02:38 12/17/22 02:33 12/17/22 02:28 12/17/22 02:23 12/17/22 02:18 12/17/22 02:13 12/17/22 02:08 12/17/22 02:03 12/17/22 01:58 12/17/22 01:53 12/17/22 01:48 12/17/22 01:43 12/17/22 01:38 12/17/22 01:33 12/17/22 01:28 12/17/22 01:23 12/17/22 01:24 12/17/22 01:18 12/17/22 01:13 12/17/22 01:08 12/17/22 01:03 12/17/22 00:58 12/17/22 00:53 12/17/22 00:48 12/17/22 00:43 12/17/22 00:38 12/17/22 00:33 12/17/22 00:28 12/17/22 00:24 12/17/22 00:23 12/17/22 00:18 12/17/22 00:13 12/17/22 00:08 12/17/22 00:03 12/16/22 23:58 12/16/22 23:53 12/16/22 23:48 12/16/22 23:43 12/16/22 23:38 12/16/22 23:33 12/16/22 23:28 12/16/22 23:24 12/16/22 23:23 12/16/22 23:18 12/16/22 23:13 12/16/22 23:08 12/16/22 23:03 12/16/22 22:58 12/16/22 22:53 12/16/22 22:48 12/16/22 22:43 12/16/22 22:38 12/16/22 22:33 12/16/22 22:28 12/16/22 22:24 12/16/22 22:23 12/16/22 22:18 12/16/22 22:13 12/16/22 22:08 12/16/22 22:03 12/16/22 21:58 12/16/22 21:53 12/16/22 21:48 12/16/22 21:43 12/16/22 21:38 12/16/22 21:33 12/16/22 21:28 12/16/22 21:24 12/16/22 21:23 12/16/22 21:18 12/16/22 21:13 12/16/22 21:08
[2022-12-17] MEDS: FERROUS SULFATE 325 MG TAB PO SCH (10:42)
[2022-12-17] MEDS: PRENATAL VITAMIN 1 TAB PO SCH (10:42)
[2022-12-17] MEDS: DOCUSATE SODIUM 100 MG CAP PO SCH ×2 (10:42→21:39)
--- NOTE | 2022-12-17 10:48 | Obstetrical Progress Note ---
Date of Service December 17, 2022 Assessment & Plan (1) Shaking: (2) state: Plan -will continue mag until 5pm which will be 24 hrs, will defer labs as have always been stable. Pt aware of plan, no further questions Admission and Anticipated Discharge Date Admission Date: December 15, 2022 Subjective Pt resting comfortably, aware I am taking over care today. Sleeping well, denies JURADO, CP, SOB. No further shaking activity Results & Data ([facility]) Vital Signs (Past 12 Hours) Vital Signs Temp Pulse Pulse Resp BP BP Pulse Ox 12/17/22 10:22 18 12/17/22 09:41 18 12/17/22 08:55 16 12/17/22 08:00 16 12/17/22 07:15 20 12/17/22 07:15 97.7 F 20 12/17/22 06:00 18 12/17/22 05:00 18 12/17/22 04:00 18 12/17/22 04:00 98.4 F 65 18 108/69 96 12/17/22 03:00 18 12/17/22 02:00 18 12/17/22 01:00 18 12/17/22 00:00 16 12/16/22 23:00 20 12/17/22 10:43 79 98 12/17/22 10:38 70 99 12/17/22 10:33 66 97 12/17/22 10:28 71 96 12/17/22 10:23 78 97 12/17/22 10:18 72 96 12/17/22 10:13 70 97 12/17/22 10:08 67 98 12/17/22 10:03 70 97 12/17/22 09:58 70 97 12/17/22 09:53 69 97 12/17/22 09:48 71 97 12/17/22 09:43 72 97 12/17/22 09:38 73 97 12/17/22 09:33 68 97 12/17/22 09:28 70 97 12/17/22 09:23 70 98 12/17/22 09:18 77 96 12/17/22 09:13 80 95 12/17/22 09:08 76 96 12/17/22 09:03 75 96 12/17/22 08:58 80 96 12/17/22 08:53 78 96 12/17/22 08:48 80 96 12/17/22 08:43 75 95 12/17/22 08:38 80 96 12/17/22 08:33 73 96 12/17/22 08:28 75 96 12/17/22 08:23 74 97 12/17/22 08:18 76 96 12/17/22 08:13 72 97 12/17/22 08:08 73 96 12/17/22 08:03 71 96 12/17/22 07:58 75 97 12/17/22 07:53 71 96 12/17/22 07:48 76 96 12/17/22 07:43 72 96 12/17/22 07:38 89 100 12/17/22 07:33 77 99 12/17/22 07:28 70 98 12/17/22 07:23 70 99 12/17/22 07:18 83 100 12/17/22 07:13 74 115/76 98 12/17/22 07:08 72 97 12/17/22 07:03 69 98 12/17/22 06:58 72 99 12/17/22 06:53 73 98 12/17/22 06:48 76 98 12/17/22 06:43 75 98 12/17/22 06:38 74 100 12/17/22 06:33 70 99 12/17/22 06:28 70 97 12/17/22 06:24 70 110/76 12/17/22 06:23 69 98 12/17/22 06:18 78 100 12/17/22 06:13 72 98 12/17/22 06:08 72 100 12/17/22 06:03 78 99 12/17/22 05:58 74 99 12/17/22 05:53 67 96 12/17/22 05:48 69 96 12/17/22 05:43 68 96 12/17/22 05:38 68 95 12/17/22 05:33 83 95 12/17/22 05:28 77 95 12/17/22 05:24 75 115/77 12/17/22 05:23 77 95 12/17/22 05:18 74 94 12/17/22 05:13 73 95 12/17/22 05:08 71 95 12/17/22 05:03 69 95 12/17/22 04:58 69 96 12/17/22 04:53 70 95 12/17/22 04:48 69 96 12/17/22 04:43 68 96 12/17/22 04:38 72 95 12/17/22 04:33 70 95 12/17/22 04:28 69 95 12/17/22 04:24 65 108/69 12/17/22 04:23 69 95 12/17/22 04:18 73 94 12/17/22 04:13 76 95 12/17/22 04:08 76 94 12/17/22 04:03 77 95 12/17/22 03:58 73 94 12/17/22 03:53 77 95 12/17/22 03:48 73 96 12/17/22 03:43 77 96 12/17/22 03:38 76 95 12/17/22 03:33 73 95 12/17/22 03:28 70 95 12/17/22 03:24 69 105/67 12/17/22 03:23 71 96 12/17/22 03:18 70 97 12/17/22 03:13 73 96 12/17/22 03:08 72 96 12/17/22 03:03 70 96 12/17/22 02:58 69 96 12/17/22 02:53 65 96 12/17/22 02:48 69 96 12/17/22 02:43 68 96 12/17/22 02:38 68 96 12/17/22 02:33 69 96 12/17/22 02:28 67 96 12/17/22 02:23 67 95 12/17/22 02:18 68 95 12/17/22 02:13 67 95 12/17/22 02:08 70 94 12/17/22 02:03 76 95 12/17/22 01:58 73 95 12/17/22 01:53 75 95 12/17/22 01:48 74 96 12/17/22 01:43 71 94 12/17/22 01:38 67 96 12/17/22 01:33 66 96 12/17/22 01:28 65 95 12/17/22 01:23 66 95 12/17/22 01:24 77 109/68 12/17/22 01:18 67 96 12/17/22 01:13 66 96 12/17/22 01:08 67 96 12/17/22 01:03 66 95 12/17/22 00:58 76 96 12/17/22 00:53 67 95 12/17/22 00:48 67 95 12/17/22 00:43 64 95 12/17/22 00:38 68 95 12/17/22 00:33 68 94 12/17/22 00:28 70 94 12/17/22 00:24 66 102/59 L 12/17/22 00:23 72 95 12/17/22 00:18 71 94 12/17/22 00:13 75 96 12/17/22 00:08 80 97 12/17/22 00:03 70 95 12/16/22 23:58 70 94 12/16/22 23:53 70 95 12/16/22 23:48 70 95 12/16/22 23:43 70 94 12/16/22 23:38 69 94 12/16/22 23:33 68 94 12/16/22 23:28 69 94 12/16/22 23:24 78 103/72 12/16/22 23:23 69 94 12/16/22 23:18 70 95 12/16/22 23:13 72 94 12/16/22 23:08 72 94 12/16/22 23:03 71 94 12/16/22 22:58 71 94 12/16/22 22:53 75 95 12/16/22 22:48 77 95 O2 Del Method 12/17/22 10:22 12/17/22 09:41 12/17/22 08:55 12/17/22 08:00 12/17/22 07:15 12/17/22 07:15 12/17/22 06:00 12/17/22 05:00 12/17/22 04:00 12/17/22 04:00 Room Air 12/17/22 03:00 12/17/22 02:00 12/17/22 01:00 12/17/22 00:00 12/16/22 23:00 12/17/22 10:43 12/17/22 10:38 12/17/22 10:33 12/17/22 10:28 12/17/22 10:23 12/17/22 10:18 12/17/22 10:13 12/17/22 10:08 12/17/22 10:03 12/17/22 09:58 12/17/22 09:53 12/17/22 09:48 12/17/22 09:43 12/17/22 09:38 12/17/22 09:33 12/17/22 09:28 12/17/22 09:23 12/17/22 09:18 12/17/22 09:13 12/17/22 09:08 12/17/22 09:03 12/17/22 08:58 12/17/22 08:53 12/17/22 08:48 12/17/22 08:43 12/17/22 08:38 12/17/22 08:33 12/17/22 08:28 12/17/22 08:23 12/17/22 08:18 12/17/22 08:13 12/17/22 08:08 12/17/22 08:03 12/17/22 07:58 12/17/22 07:53 12/17/22 07:48 12/17/22 07:43 12/17/22 07:38 12/17/22 07:33 12/17/22 07:28 12/17/22 07:23 12/17/22 07:18 12/17/22 07:13 12/17/22 07:08 12/17/22 07:03 12/17/22 06:58 12/17/22 06:53 12/17/22 06:48 12/17/22 06:43 12/17/22 06:38 12/17/22 06:33 12/17/22 06:28 12/17/22 06:24 12/17/22 06:23 12/17/22 06:18 12/17/22 06:13 12/17/22 06:08 12/17/22 06:03 12/17/22 05:58 12/17/22 05:53 12/17/22 05:48 12/17/22 05:43 12/17/22 05:38 12/17/22 05:33 12/17/22 05:28 12/17/22 05:24 12/17/22 05:23 12/17/22 05:18 12/17/22 05:13 12/17/22 05:08 12/17/22 05:03 12/17/22 04:58 12/17/22 04:53 12/17/22 04:48 12/17/22 04:43 12/17/22 04:38 12/17/22 04:33 12/17/22 04:28 12/17/22 04:24 12/17/22 04:23 12/17/22 04:18 12/17/22 04:13 12/17/22 04:08 12/17/22 04:03 12/17/22 03:58 12/17/22 03:53 12/17/22 03:48 12/17/22 03:43 12/17/22 03:38 12/17/22 03:33 12/17/22 03:28 12/17/22 03:24 12/17/22 03:23 12/17/22 03:18 12/17/22 03:13 12/17/22 03:08 12/17/22 03:03 12/17/22 02:58 12/17/22 02:53 12/17/22 02:48 12/17/22 02:43 12/17/22 02:38 12/17/22 02:33 12/17/22 02:28 12/17/22 02:23 12/17/22 02:18 12/17/22 02:13 12/17/22 02:08 12/17/22 02:03 12/17/22 01:58 12/17/22 01:53 12/17/22 01:48 12/17/22 01:43 12/17/22 01:38 12/17/22 01:33 12/17/22 01:28 12/17/22 01:23 12/17/22 01:24 12/17/22 01:18 12/17/22 01:13 12/17/22 01:08 12/17/22 01:03 12/17/22 00:58 12/17/22 00:53 12/17/22 00:48 12/17/22 00:43 12/17/22 00:38 12/17/22 00:33 12/17/22 00:28 12/17/22 00:24 12/17/22 00:23 12/17/22 00:18 12/17/22 00:13 12/17/22 00:08 12/17/22 00:03 12/16/22 23:58 12/16/22 23:53 12/16/22 23:48 12/16/22 23:43 12/16/22 23:38 12/16/22 23:33 12/16/22 23:28 12/16/22 23:24 12/16/22 23:23 12/16/22 23:18 12/16/22 23:13 12/16/22 23:08 12/16/22 23:03 12/16/22 22:58 12/16/22 22:53 12/16/22 22:48 PG Care Time/CCT Total # of Minutes Spent Total Time Spent with Patient: Total time spent is greater than 50% in coordination of care (as documented) at patient's floor/unit and/or counseling patient: Coding Level of Care Code None Diagnoses Shaking R25.1 state Z39.2
--- NOTE | 2022-12-17 11:23 | Anesthesiology Progress Note ---
Date of Service December 17, 2022 Assessment & Plan Admission and Anticipated Discharge Date Admission Date: December 15, 2022 Subjective Spoke with the patient this morning. She is sitting upright in bed and denies any symptoms of postdural puncture headache including headache. Please alert anesthesia should she develop symptoms of headache. Will sign off at this time. Physical Exam Vital Signs: Last Vital Signs Temp 36.5 C 12/17/22 07:15 Pulse 80 12/17/22 11:18 Resp 18 12/17/22 10:48 BP 112/75 12/17/22 10:46 Pulse Ox 99 12/17/22 11:18 O2 Del Method 12/17/22 04:00 Results & Data ([facility]) Medications Administered Benzocaine (Benzocaine 20% Aer Spr 82.5 Gm Can) 1 appln EXT PRN PRN PRN Reason: Perineal Discomfort Stop: 01/15/23 02:09 Last Admin: 12/16/22 05:58 Dose: 1 appln Documented By: KRYSTLEO Docusate Sodium (Docusate Sodium 100 Mg Cap) 100 mg PO DAILY@ [facility] Stop: 01/15/23 07:59 Last Admin: 12/17/22 10:42 Dose: 100 mg Documented By: Admin: 12/16/22 20:51 Dose: 100 mg Documented By: AMDeb Admin: 12/16/22 11:03 Dose: 100 mg Documented By: RB Ferrous Sulfate (Ferrous Sulfate 325 Mg Tab) 325 mg PO QAM YANICK Stop: 01/16/23 08:59 Last Admin: 12/17/22 10:42 Dose: 325 mg Documented By: CHENGF Oxytocin (Pitocin) 30 units in 500 mls @ 333.333 mls/hr IV .Q1H30M PRN; Protocol PRN Reason: Bleeding Control Stop: 01/14/23 09:02 Last Admin: 12/16/22 02:11 Dose: 20 units/hr, 333.3 mls/hr Documented By: SHERI Co-signed By: JARVIS Magnesium Sulfate (Magnesium Sulfate / Wtr) 40 gm in 1,000 mls @ 50 mls/hr IV .Q20H YANICK Stop: 01/15/23 15:59 Last Admin: 12/17/22 06:02 Dose: 50 mls/hr Documented By: AMDeb Co-signed By: TNW Infusion: 12/17/22 06:02 Dose: 50 mls/hr Documented By: AMDeb Co-signed By: TNW Infusion: 12/16/22 16:59 Dose: 50 mls/hr Documented By: RB Co-signed By: LRS Admin: 12/16/22 16:39 Dose: 300 mls/hr Documented By: RB Co-signed By: DYLAN Ibuprofen (Ibuprofen 600 Mg Tab) 600 mg PO Q4H PRN PRN Reason: Pain/JURADO/Cramping/Fever Stop: 01/15/23 02:09 Last Admin: 12/17/22 06:34 Dose: 600 mg Documented By: Admin: 12/16/22 20:51 Dose: 600 mg Documented By: Admin: 12/16/22 13:37 Dose: 600 mg Documented By: Admin: 12/16/22 08:20 Dose: 600 mg Documented By: RB Prenat Multivit/Mcminn/Iron/Folic Ac ( Vitamin 1 Tab) 1 tab PO DAILY@08 YANICK Stop: 01/15/23 07:59 Last Admin: 12/17/22 10:42 Dose: 1 tab Documented By: Admin: 12/16/22 11:02 Dose: 1 tab Documented By: RB
[2022-12-17] MEDS ORDERED: CALCIUM CARBONATE 500 MG CHEWABLE TAB PO PRN (12:14)
[2022-12-17] MEDS ORDERED: bisacodyL 5 MG TABEC PO SCH (20:00)
[2022-12-17] MEDS ORDERED: diphenhydrAMINE Capsule 25 MG CAP PO ONE (20:36)
--- NOTE | 2022-12-17 20:42 | Communication Note ---
Date of Service: December 17, 2022 Delayed entry due to concomitant pt care. Pt was placed on 24hrs of magnesium after treatment for presumed eclampsia due to shaking activity. During that 24hrs of magnesium, no episodes of shaking were noted. Magnesium was discontinued at approx 445pm and she was monitored following. She was able to void to the bathroom and return w/o issues. She then went to have BM and was able to w/o issue, then went to sink to wash her hands. While standing at the sink, felt like her JURADO got worse, felt lightheaded, and her left hand began to tremor slightly. These did resolve upon return to bed. VS were wnl throughout. She remained conscious, there was no postictal state. Pt denies any seizure hx in the past. Discussed pt's case with on-call neurologist who has low suspicion for true seizure or eclamptic activity. They are amenable to seeing pt tomorrow and getting EEG due to persistence of symptoms. EEG ordered, will await neuro recs
[2022-12-18] MEDS ORDERED: bisacodyL 10 MG SUPP PR PRN
[2022-12-18] MEDS: IBUPROFEN 600 MG TAB PO PRN (04:53)
[2022-12-18 06:02] LABS: Hematocrit (blood only) 24.7 % (37.0-47.0); Hemoglobin 8.4 g/dl (12.0-16.0)
--- NOTE | 2022-12-18 08:05 | Obstetrical Progress Note ---
Date of Service December 18, 2022 Assessment & Plan (1) state: (2) Shaking: Plan 22 yo PP2 from , complicated by pp shaking episodes and now s/p 24hrs mag -Meeting all pp milestones, feeling better after blood. H/H brent appropriately, no further shaking. Discussed case with neuro last evening and they are amenable to seeing her today. Will await their recs, if ok I think ok to d/c later today still -O+/rubella immune/ -f/u 6 weeks for appt, continue routine pp care otherwise Subjective Ambulation: ambulating normally Voiding: no voiding problems Passing Gas:: Yes Diet Tolerance:: regular diet Lochia:: Small Feeding Type:: breast feeding Pain well managed with medication. Feeling much more awake and energetic after blood, JURADO improved. no further shaking episodes Review of Systems Denies fevers, chills, n/v, JURADO, CP, SOB Physical Exam Constitutional WD/WN, vitals as above no acute distress Respiratory normal respiratory effort, lungs clear to auscultation Cardiovascular RRR, no murmur, no edema Gastrointestinal (Abdomen) Percussion/Palpation: abdomen soft; abdomen nontender fundus firm at umbilicus and NT Musculoskeletal BLE symmetric, nonerythematous, nontender Results & Data ([facility]) Vital Signs (Past 12 Hours) Vital Signs Temp Pulse Pulse Pulse Resp BP BP 12/18/22 07:43 97.9 F 56 L 20 110/71 12/18/22 03:18 98.2 F 70 18 106/67 12/18/22 01:45 97.9 F 60 18 105/67 12/17/22 22:37 97.9 F 70 18 107/70 12/17/22 21:37 97.7 F 83 18 115/74 12/17/22 21:06 97.5 F L 88 18 109/72 12/17/22 20:46 98.1 F 87 18 114/77 Pulse Ox O2 Del Method 12/18/22 07:43 96 Room Air 12/18/22 03:18 97 Room Air 12/18/22 01:45 97 Room Air 12/17/22 22:37 99 12/17/22 21:37 98 12/17/22 21:06 99 12/17/22 20:46 98
[2022-12-18] MEDS: DOCUSATE SODIUM 100 MG CAP PO SCH (08:25)
[2022-12-18] MEDS: FERROUS SULFATE 325 MG TAB PO SCH (08:25)
[2022-12-18] MEDS: PRENATAL VITAMIN 1 TAB PO SCH (08:25)
--- NOTE | 2022-12-18 14:45 | Neurology Consultation ---
Date of Consultation December 18, 2022 Assessment & Plan (1) Shaking: Impression: Since vaginal delivery two days ago, the patient has been having episodes of shaking, involving bilateral upper extremities and sometimes lower extremities, without alteration of awareness, highly suggestive of nonepileptic events. There was no other symptoms or findings to suggest eclampsia/preeclampsia. Most of such episodes started while the patient was standing up, which is suggestive of hemodynamic instability, as the patient was having significant hemoglobin drop. She has not had any similar episodes since yesterday, since she received blood product with some improvement of hemoglobin. She has no history of seizure or seizure-like activities. Plan/recommendations: The patient will hydrate herself well and will change the position gradually. The patient is a short about benign nature of her shaking episodes. The patient does not need EEG or additional neurology follow-up. The patient is neurologically stable and can be discharged home. If the patient continue having similar shaking activity, or additional neurological symptoms, then she should contact with neurology clinic for reevaluation. Thank you for the consultation. History of Present Illness Reason for Consultation: Shaking epsiodes Requesting Physician: Gail Buck MD Attending Physician: Belén Montano MD History of Present Illness The patient is a pleasant, 22-year-old female, who gave 2 days ago without complication other than hemoglobin drop. After the delivery, the patient was standing up in the bathroom, and started shaking, involving bilateral upper and lower extremities, which lasted for 20 to 30 minutes. The patient was able to communicate well, without change of any mental status. She was given a sedative, and fell in the sleep, and woke up without any shaking. Such episode lasted few more times, and the patient was treated with IV magnesium. However, there was no other abnormalities to suggest eclampsia. She had another episode yesterday evening, which was milder, and affected only her hands. Based on recurrent symptoms, neurology consultation was requested. Patient denies having any seizure or seizure-like activities before. Hemoglobin level was dropped close to 7 probably secondary to vaginal delivery. She received a blood product, with improvement of hemoglobin. Since yesterday, the patient has not experienced any similar shaking activity, even while standing up. I have reviewed the patient's chart and discussed the case with Dr. Buck. I have answered the patient's questions in detail. Allergies Allergy/AdvReac Type Severity Reaction Status Date / Time Penicillins Allergy Intermediate Rash Verified 12/15/22 08:13 latex Allergy Rash Verified 12/15/22 08:35 Home Medications Medication Instructions Recorded Confirmed Type prenat.vits,karla,xaw-vqfs-vngdj 1 tab PO DAILY 05/04/22 12/15/22 History Patient History Medical History Anxiety and depression Palpitations holter monitored showed WNL Varicella vaccination Surgical History Hx of tonsillectomy Family History Mother Cervical cancer Other Dyslipidemia Hypertension Denies family history of Ovarian cancer Breast cancer Colorectal cancer Uterine cancer Social History Smoking Status: Never smoker Hx Alcohol Use: No Hx Substance Use: No Preferred Language: Romanian 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 HENT: Normal exam with inspection. CV: Hearth rhythm is regular. Neck: Supple, no carotid bruits. Lungs: Non-labored and comfortable breathing. Abdomen: Soft, non-tender, non-distended. Skin: No rash or ecchymosis. Extremities: No edema or cyanosis NEUROLOGICAL EXAMINATION: Mental Status: Alert and oriented to place, person and time. Cranial Nerves: II-XII are intact. No nystagmus. Funduscopy: Normal looking optic discs. Motor: 5/5 in all extremities without asymmetry. Tone: Normal without spasticity or rigidity. Sensory: Intact to all sensory modalities. Coordination: No dysmetria with FTN testing. Speech: Fluent. Comprehension is intact. Gait: Normal. No ataxia or abnormal walking pattern. Musculoskeletal: Normal muscle bulk, no atrophy. Results & Data ([facility]) Vital Signs (Past 12 Hours) Vital Signs Temp Pulse Pulse Resp BP Pulse Ox O2 Del Method 12/18/22 12:03 36.6 C 79 20 118/77 12/18/22 07:43 36.6 C 56 L 20 110/71 96 Room Air 12/18/22 03:18 36.8 C 70 18 106/67 97 Room Air Laboratory Results Laboratory Results - last 24 hr 12/15/22 12/18/22 09:15 05:41 Hgb 8.4 L Hct 24.7 L Blood Type O Positive Antibody Screen NEGATIVE Crossmatch See Detail
--- NOTE | 2022-12-21 11:30 | Discharge Summary ---
Date of Service December 21, 2022 Admission HPI Per Admitting Provider 22yo at 39w6d with ROM this morning f/b onset of mild ctx. Good FM, no VB, fluid clear. Discharge Data Consultations 12/15/22 09:03 Consult Anesthesiology Stat 12/17/22 20:50 Consult Neurology Routine Hospital Course (1) SROM (spontaneous rupture of membranes): Patient had SROM and early labor upon presentation, which was augmented until achieving vaginal delivery that evening (complicated by significant shoulder dystocia). After delivery she experienced multiple episodes of shaking which were able to be stopped with voluntary effort or distraction as well as with demerol, but were not well explained and recurred several times. Despite normal PIH labwork and primarily normal BP values, the patient was treated with magnesium IV for possible eclampsia as the risks of this treatment were low and the risks of untreated eclampsia are high. When the shaking episodes persisted after magnesium, neurology consultation was called. A thorough neurologic exam was reassuring and the patient was felt to have had shaking due to hypotension after the peripartum blood losses rather than seizure activity. Notably, her anemia was treated with transfusion and appropriate rise was documented early in the morning of 12/18. The patient also experienced dural puncture during the placement of epidural. She was closely observed and also managed with cosyntropin per anesthesia to prevent PDPH, and she was not experiencing any signs of spinal h/a nor did she require blood patch prior to d/c home. She will f/u with OB at the usual 6 week timeframe. Coding Level of Care Code None Diagnoses SROM (spontaneous rupture of membranes)
--- NOTE | 2022-12-22 12:08 | Coding Query ---
CODING QUERY To promote full compliance with coding requirements relating to patient care, provider participation is requested in all cases of environmental conservation officer uncertainty. Please assist us with the question(s) below: Coding Question(s): 12/16 Anesthesia note stated " dural puncture after epidural placement". Seeking to clarify if this is a complication or expected occurrence of the procedure. Please check below. Thank you. Physician's Response(s): The dural puncture is a complication of the procedure the dural puncture is an expected occurrence of the procedure Cannot clinically determine if the dural puncture is a complicatoin or expected occurrence ____X Other: Please document: __Epidural placement is not within my scope of practice as obstetrician Principal Diagnosis: "that condition established after study, to be chiefly responsible for occasioning the admission of the patient to the hospital for care." Co-Existing Principal Diagnosis: "when two or more diagnoses equally meet the criteria for principal diagnosis as determined by the circumstances of admission, diagnostic work up, and/or therapy provided, and the Alphabetic Index, Tabular List, or another coding guideline does not provide sequencing direction, any one of the diagnoses may be sequenced first." "When the physician has documented what appears to be a current diagnosis in the body of the record, but has not included the diagnosis in the final diagnostic statement, the physician should be asked whether the diagnosis should be added." ([facility] 2 QTR90. p3-4) ARYAD
--- NOTE | 2022-12-23 05:39 | Coding Query ---
CODING QUERY To promote full compliance with coding requirements relating to patient care, provider participation is requested in all cases of member services coordinator uncertainty. Please assist us with the question(s) below: Coding Question(s): 12/16 Anesthesia note stated " dural puncture after epidural placement". Seeking to clarify if this is a complication or expected occurrence of the procedure. Please check below. Thank you. Physician's Response(s): X___ The dural puncture is a complication of the procedure the dural puncture is an expected occurrence of the procedure Cannot clinically determine if the dural puncture is a complication or expected occurrence Other: Please document: Physician's Response(s): Principal Diagnosis: "that condition established after study, to be chiefly responsible for occasioning the admission of the patient to the hospital for care." Co-Existing Principal Diagnosis: "when two or more diagnoses equally meet the criteria for principal diagnosis as determined by the circumstances of admission, diagnostic work up, and/or therapy provided, and the Alphabetic Index, Tabular List, or another coding guideline does not provide sequencing direction, any one of the diagnoses may be sequenced first." "When the physician has documented what appears to be a current diagnosis in the body of the record, but has not included the diagnosis in the final diagnostic statement, the physician should be asked whether the diagnosis should be added." ([facility] 2 QTR90. p3-4) ARYAD
== END 2022-12-18 15:55 | disposition home or self-care (01) | DRG 806 ==
LOC: OPB 07:51 → 4S1 07:52 → 4E2 12-16 04:06 → 4S1 12-16 16:07 → 4E2 12-17 20:10